=== PATIENT | female | born 1925 | race Caucasian/White ===

== ENCOUNTER 2017-06-14 17:38 | Emergency (ER) | payer OTHER ==
[~2017-06-14] VITALS: Ht 157.5 cm; Wt 65.8 kg
[~2017-06-14 17:38] MED LIST: AMOXICILLIN; Ativan0.5 MG PO; FURO20 PO; LORA.5 PO; POTCHL10ER PO; RISEDRONATE SO150 MG PO; SULTRIDS PO; YUVAFEM10 MCG VG
[2017-06-14] MEDS ORDERED: SERT50 (17:53)
[2017-06-14] MEDS ORDERED: OMEPRAZOLE DR 40 MG (17:53)
[2017-06-14] MEDS ORDERED: LIDOCAINE1 EACH (17:53)
[2017-06-14] MEDS ORDERED: ESTRADIOL10 MCG (17:54)
[2017-06-14] MEDS ORDERED: Ultram50 MG PO (19:17)
== END 2017-06-14 19:57 | disposition home or self-care (01) ==
LOC: ER 17:38
DX: S42.112A Displaced fracture of body of scapula, left shoulder, initial encounter for closed fracture (principal); E03.9 Hypothyroidism, unspecified; F41.9 Anxiety disorder, unspecified; Z87.81 Personal history of (healed) traumatic fracture; W01.0XXA Fall on same level from slipping, tripping and stumbling without subsequent striking against object, initial encounter
CPT/HCPCS: 29105; 73030; 99283

== ENCOUNTER → 2017-07-30 | Outpatient (CLI) | payer OTHER ==
[~2017-07-30] MED LIST changes: +ESTRADIOL10 MCG; +LIDOCAINE1 EACH; +OMEPRAZOLE DR 40 MG; +SERT50; +Ultram50 MG PO
[2017-07-30 16:13] LABS: Source, Urine Catheter
[2017-07-30 17:42] LABS: Appearance, Urine Clear (Clear); Bilirubin, Urine Neg (Neg); Blood, Urine 1+ (Neg); Color, Urine Yellow (P-Yellow); Glucose Qualitative, Urine Neg (Neg); Ketones, Urine Neg (Neg); Leukocyte Esterase, Urine Neg (Neg); Nitrite, Urine Neg (Neg); Protein, Urine Neg (Neg); Urobilinogen, Urine NORM (Normal)
[2017-07-30 17:52] LABS: White Blood Cells, Urine 0-2 /hpf (0-5)
[2017-07-30 17:53] LABS: Bacteria Few /hpf; Squamous Epithelial Cells Few /hpf (Few)
== END | disposition home or self-care (01) ==
LOC: OLS 16:05 → LAB SHORT 16:05
PROVIDERS: Nurse Practitioner Women's Health
DX: N89.8 Other specified noninflammatory disorders of vagina (principal); R30.0 Dysuria
CPT/HCPCS: 81001; 87070; 87147; 87205